=== PATIENT | female | born 1985 | race Caucasian/White ===

== ENCOUNTER 2016-10-19 09:38 | Emergency (ER) | payer OTHER ==
--- NOTE | ~2016-10-19 | CR63 ---
[facility] A Service of [facility] RADIOLOGY TEXT RESULTS PATIENT: PORTIA BAIRD LOCATION: [facility] : 89 UNIT #: [id number] AGE: [address]: Wiliam Petit MD SEX: F ORDER DR: [id number] [facility] [address] [place], [place] [address] [id number] MR#: [id number] Acc #: [id number] NAME: PORTIA BAIRD : 1985 SEX: F STUDY DATE/TIME: 10/19/2016 11:16 UNIT: [facility] ROOM: STUDY DESCRIPTION: CR Chest 2 View Attending Physician: Wiliam Petit M.D. Ordering Physician: Wiliam Petit M.D. Primary Care Physician: No Primary Care Physician MEDICAL IMAGING REPORT This report is preliminary unless electronic signature is present EXAM Chest x-ray, 2-view. HISTORY Cough, congestion, fever, short of air. Symptoms for 2 days. COMMENT 2 views of the chest are reviewed. TECHNIQUE 3 films submitted. COMPARISON STUDY 04/30/2015 FINDINGS Heart size normal. No acute-appearing parenchymal infiltrate, acute congestive failure, pneumothorax, or pleural effusion is suspected. Patient has had bilateral breast implants. IMPRESSION No active disease. Dictated by... Yadira Robles M.D. THIS IS AN ELECTRONICALLY VERIFIED REPORT Yadira Robles M.D. at 10/19/2016 3:07 PM ELOY/lacey TD: 10/19/2016 13:43 [facility] A Service of [facility] RADIOLOGY TEXT RESULTS PATIENT: PORTIA BAIRD LOCATION: [facility] : 89 UNIT #: [id number] AGE: [address]: Wiliam Petit MD SEX: F ORDER DR: JOB #: [id number] MEDICAL IMAGING REPORT COPY
[2016-10-19 10:07] LABS: INFLUENZA A NEG (NEG); INFLUENZA B NEG (NEG)
== END 2016-10-19 12:10 | disposition home or self-care (01) ==
LOC: CED 09:38
PROVIDERS: Emergency Medicine
DX: J02.0 Streptococcal pharyngitis (principal); Z88.8 Allergy status to other drugs, medicaments and biological substances
CPT/HCPCS: 71020; 87804; 87880; 96372; 99284; J0561